=== PATIENT | male | born 1990 | race Caucasian/White ===

== ENCOUNTER → 2021-02-02 13:44 | Outpatient (ROUT) | payer OTHER, SELFPAY ==
[2021-02-02 14:04] LABS: COVID19 -Nasal RAPID Negative (Negative)
== END ==
PROVIDERS: Visit Provider Family Medicine
DX: Z20.822 Contact with and (suspected) exposure to COVID-19 (principal)
CPT/HCPCS: 87635

== ENCOUNTER → 2024-08-14 13:11 | Outpatient (CLI) | payer OTHER, SELFPAY ==
[2024-08-14 14:01] LABS: Influenza A - CEPHEID Flu A POSITIVE (NEGATIVE); Influenza B - CEPHEID Flu B NEGATIVE (NEGATIVE); Respiratory Syncytial Virus Negative (Negative)
[2024-08-14 14:13] LABS: COVID-19 CEPHEID 4-PLEX PCR Negative (Negative)
== END ==
PROVIDERS: PCP Nurse Practitioner Family; Visit Provider Nurse Practitioner Family
DX: R05.9 Cough, unspecified (principal); R50.9 Fever, unspecified
CPT/HCPCS: 0241U